=== PATIENT | female | born 1960 | race Caucasian/White ===

== ENCOUNTER 2017-05-29 13:08 | Outpatient (CLI) | payer OTHER | END 2017-05-29 13:09 | disposition home or self-care (01) | DX: R07.89 Other chest pain (principal) | CPT/HCPCS: 93017 ==

== ENCOUNTER 2017-08-18 14:26 | Outpatient (CLI) | payer OTHER | END 2017-08-18 14:27 | disposition home or self-care (01) | LOC: BICULT 14:26 | PROVIDERS: ATTEND Family Medicine | DX: M79.89 Other specified soft tissue disorders (principal) ==

== ENCOUNTER 2017-09-03 09:55 | Outpatient (CLI) | payer OTHER ==
--- NOTE | 2017-09-03 12:07 | ULT ---
SOFT TISSUE ULTRASOUND OF THE NECK SUPRACLAVICULAR REGION LEFT SIDE WITH DOPPLER AND COLOR FLOW IMAGI NG: Date: 09/03/17 CLINICAL HISTORY: Neck swelling, palpable left supraclavicular mass. FINDINGS: At the site of palpable concern, sonographic imaging reveals reniform shaped soft tissue masses with associated flow by Doppler assessment indicating lymph nodes. These are of indeterminate etiology on the basis of this exam. Lymph nodes measure slightly greater than 1.0 cm in length and up to approxim ately 5.0 mm in short axis dimension. IMPRESSION: Scattered nonspecific lymph nodes of the area of clinical concern. As necessary, contrast enhanced CT neck soft tissue scan may be performed for further anatomic evaluation. POS: HAJA
== END 2017-09-03 09:56 | disposition home or self-care (01) ==
LOC: SCSULT 09:55
PROVIDERS: ATTEND Family Medicine
DX: R22.1 Localized swelling, mass and lump, neck (principal)
CPT/HCPCS: 76536

== ENCOUNTER 2017-09-10 09:56 | Outpatient (CLI) | payer OTHER ==
--- NOTE | 2017-09-10 11:26 | MRI ---
MRI RIGHT SHOULDER WITHOUT CONTRAST: HISTORY: M25.51. Chronic shoulder pain. COMPARISON: MRI right shoulder 03/08/11. FINDINGS: BICEPS TENDON: There is interstitial tear of the extraarticular biceps tendon with very atretic fibers. No normal i ntraarticular fibers are appreciated. LABRUM: There is tearing throughout the superior labrum and posterior superior labrum. ROTATOR CUFF: Severe tendinosis and scar replacement of the anterior fibers anterior of the supraspinatus tendo n. There are interstitial tears throughout the supraspinatus and infraspinatus tendons. Extensive u ndersurface fraying of the infraspinatus and supraspinatus tendons. No full-thickness perforation is appreciated. There is 30-40% undersurface tear of the mid supraspinatus tendon near the footplate w ith a 6 mm gap measuring 5 mm in AP dimension. BONES: There is a large subacromial keel osteophyte narrowing the subacromial space and causing a lot of fra roberto in the supraspinatus tendon. Advanced degenerative disease of the acromioclavicular joint. SOFT TISSUES: Moderate subacromial-subdeltoid bursa effusion. Mild loss of normal subcoracoid fat. There is some fibrosis in the rotator interval. MUSCLES: The muscle signal and bulk is normal. IMPRESSION: 1. Chronic rupture of the biceps tendon for which the extraarticular tendon is severe atretic with n o normal intraarticular fibers remaining. 2. Severe tearing throughout the superior and posterior superior labrum with muscle volume and blunt ing. 3. Undersurface 40-50% undersurface tearing of the mid fibers supraspinatus tendon 6 mm from the fabio tplate measuring 5 mm in transverse dimension. 4. Extensive interstitial tearing throughout the supraspinatus and infraspinatus tendon with large v olume scar formation. 5. Type III acromion with a large undersurface keel osteophyte narrowing the subacromial space and i mpinging upon the supraspinatus myotendinous junction. 6. Mild scar with synovitis at the rotator interval. 7. No significant muscle atrophy. POS: TPC
== END 2017-09-10 09:57 | disposition home or self-care (01) ==
LOC: SCSMRI 09:56
PROVIDERS: ATTEND Orthopaedic Surgery
DX: M25.511 Pain in right shoulder (principal); S46.011A Strain of muscle(s) and tendon(s) of the rotator cuff of right shoulder, initial encounter; S43.491A Other sprain of right shoulder joint, initial encounter; M25.711 Osteophyte, right shoulder; M65.811 Other synovitis and tenosynovitis, right shoulder

== ENCOUNTER 2017-10-06 09:16 | Outpatient (CLI) | payer OTHER ==
[2017-10-06 10:35] LABS: #Eosinphils 0.1 thou/uL (0.0-0.7); #Lymphocytes 2.5 thou/uL (1.20-3.40); #Monocytes 0.4 thou/uL (0.11-0.59); #Neutrophils 4.5 thou/uL (1.40-6.50); %Basophils 0.6 % (0.0-1.0); %Eosinophils 1.8 % (0.0-10.0); %Lymphocytes 33.1 % (21.0-51.0); %Monocytes 5.6 % (0.0-10.0); %Neutrophils 58.8 % (42.0-75.0); Hemoglobin 14.1 g/dL (12.0-16.0); Mean Corpuscular HGB CONC 33.5 g/dL (32.0-36.0); Mean Corpuscular Hemoglobin 30.4 pg (27.0-31.0); Mean Corpuscular Volume 90.8 fL (78.0-98.0); Mean Platelet Volume 5.8 fL (7.4-10.4); Platelet Count 316 thou/uL (130-400); RBC Distribution Width 11.9 % (11.5-14.5); Red Blood Cell (RBC) Count 4.64 mill/uL (4.20-5.40); White Blood Cell (WBC) Count 7.6 thou/uL (4.8-10.8)
[2017-10-06 11:00] LABS: Anion Gap 11 mmol/L (10-20); BUN (Urea Nitrogen) 18 mg/dL (9.8-20.1); Calc. Creatinine Clearance 0 mL/min (70-130); Calcium 10.1 mg/dL (7.8-10.44); Carbon Dioxide 30 mmol/L (22-29); Chloride 102 mmol/L (98-107); Estimated GFR-MDRD 58; Glucose 86 mg/dL (70-105); Potassium 4.6 mmol/L (3.5-5.1); Sodium 138 mmol/L (136-145)
--- NOTE | 2017-10-07 12:35 | EKG ---
Test Reason : Blood Pressure : / mmHG Vent. Rate : 065 BPM Atrial Rate : 065 BPM P-R Int : 136 ms QRS Dur : 084 ms QT Int : 418 ms P-R-T Axes : 057 072 049 degrees QTc Int : 434 ms Normal sinus rhythm Normal ECG Confirmed by MICHAELA ARREGUIN ([id number]) on 10/07/2017 12:34:52 PM Referred By: IERO Confirmed By:MICHAELA ARREGUIN
== END 2017-10-06 09:17 | disposition home or self-care (01) ==
LOC: LABBT 09:16
PROVIDERS: ATTEND Orthopaedic Surgery
DX: Z01.818 Encounter for other preprocedural examination (principal); M75.101 Unspecified rotator cuff tear or rupture of right shoulder, not specified as traumatic
CPT/HCPCS: 80048; 85025; 93005; 93010

== ENCOUNTER 2017-10-08 08:20 | Day surgery (SDC) | payer OTHER ==
[2017-10-06 09:36] VITALS: BMI 288.9
[2017-10-08] MEDS ORDERED: CEFAZOLIN/Water 2 GM/20 ML SYRINGE ONE (10:31)
[2017-10-08] MEDS ORDERED: Lidocaine 2% Jelly 5 ML TUBE ONE (11:04)
[2017-10-08] MEDS ORDERED: Midazolam HCl 2 mg/2 ml Vial ONE (11:04)
[2017-10-08] MEDS ORDERED: Fentanyl 250 MCG/5 ML VIAL ONE (11:04)
[2017-10-08] MEDS ORDERED: Bupivacaine HCl 0.5%/Epinephrine 1:200,000/PF 30 ml Vial ONE (11:12)
[2017-10-08] MEDS ORDERED: Bupivacaine HCl 0.25%/Epi 0.0005/PF 10 ML VIAL FS ONE ×2 (11:37)
[2017-10-08] MEDS ORDERED: Fentanyl 100 MCG/2 ML VIAL ONE (13:08)
[2017-10-08] MEDS ORDERED: Ropivacaine 0.5% HCl/PF (150 MG/30 ML VIAL) ONE (13:25)
[2017-10-08] MEDS ORDERED: Ropivacaine 0.2% HCl/PF (40 MG/20 ML VIAL) ONE (13:25)
[2017-10-08] MEDS ORDERED: Zolpidem Tartrate 5 MG TAB PO PRN (13:36)
[2017-10-08] MEDS ORDERED: traMADol HCl 50 MG TAB PO PRN ×2 (13:36)
[2017-10-08] MEDS ORDERED: Ondansetron HCl/PF 4 MG/2 ML Vial IVP PRN (13:36)
[2017-10-08] MEDS ORDERED: Ropivacaine HCl/PF 1,100 MG in Sodium Chloride 0.9% 440 ML NERVE BLCK SCH (13:36)
[2017-10-08] MEDS ORDERED: HYDROcodone/Acetaminophen 5/325 mg Tablet PO PRN ×2 (13:36)
[2017-10-08] MEDS ORDERED: Promethazine HCl 25 MG/ML VIAL IM PRN (13:36)
--- NOTE | 2017-10-08 13:55 | OP ---
DATE OF PROCEDURE: 10/08/2017 PREOPERATIVE DIAGNOSES: Right shoulder impingement with small rotator cuff tear and previously torn biceps tendon with small stump of the biceps looked into the joint. POSTOPERATIVE DIAGNOSES: Right shoulder impingement with small rotator cuff tear and previously torn biceps tendon with small stump of the biceps looked into the joint. PROCEDURE PERFORMED: 1. Right shoulder arthroscopy with subacromial decompression. 2. Arthroscopic rotator cuff repair. SURGEON: Ayaan Herrera M.D. SKIDDER OPERATOR: None. BLOOD LOSS: Minimal. COMPLICATIONS: None. ANESTHESIA: She did have a general anesthetic. DISPOSITION: She went to recovery in stable condition. IMPLANTS: We used one 4.75 Swivel Lock as an implant. INDICATIONS: A 57-year-old female who, has had problems with the right shoulder for quite some time. At this time, she is presenting for surgery. DESCRIPTION OF PROCEDURE: After all appropriate consent forms were explained and signed, she was moo en to the operating room and at this time was given general anesthetic. Once the level of anesthesia was appropriate, she was rolled into the left lateral decubitus position with all bony prominences w ell-padded. An axillary roll was placed beneath the left axilla and the gonzales bag was inflated to hol d her in this position. The arm was then suspended with 10 pounds in standard arthroscopic fashion. The right shoulder and upper extremity are prepped and draped in the standard surgical fashion. Bon y anatomic landmarks were drawn out and at this time, we injected some 0.25% Marcaine with epinephrin e to the posterior portal, lateral portal site, and the subacromial space. Posterior portal was then established and the scope was placed into the shoulder joint. Anterior working portal was then made using a needle localization technique and diagnostic arthroscopy commenced in the glenohumeral joint . There was a stump of the previously torn biceps tendon sitting on the superior labrum, superior as pect tear of the subscapularis tendon, remaining subscap was found to be nice and taut upon testing i t with internal and external rotation. There were no loose bodies noted in the axillary pouch to the posterior and inferior and anterior labrum were in excellent condition. Again, the superior labrum was torn and frayed. There was also a tear of the undersurface of the rotator cuff. All these fraye d areas were then debrided with the shaver and the rotator cuff was felt to have just a couple fibers left on the superior portion, but for all intents and purposes of full thickness tear. At this time , the scope was removed and replaced into the subacromial space. A lateral working portal was made. Bursa was removed. A small bony decompression was performed using a surface energy and the shaver a nd once this was performed, we were able to find the bump in the tendon and upon probing this, the pr obe just went right through the tendon like it was a butter. At this time, the shaver was used to fr eshen up the edges of the tendon and remove all soft tissue from this small area on the bony insertio n site and it was felt that this was small enough that we would just perform a SpeedFix type of repai r. We then took a 4.75 BioComposite Swivel Lock anchor, removed the FiberTape from this, passed a Fi berTape in inverted mattress fashion using the scorpion device into the tendon and then went down the lateral arm in a lateral row fixation technique. Once this was tightened and the anchor was placed. This gave us an excellent fixation. There were no dog ears that needed to be augmented and at this time, the sutures were cut. The excess sutures were removed from the ala. This was end of our proc edure. Scope was removed, shoulder was drained, and each portal site was closed with simple nylon st itch. Bulky sterile dressing was applied. The patient was awakened and taken to the recovery room i n stable condition. All counts were correct at the end of the case and she received preoperative IV antibiotics.
[2017-10-08] MEDS ORDERED: Ondansetron HCl/PF 4 MG/2 ML Vial ONE (14:29)
[2017-10-08] MEDS ORDERED: Glycopyrrolate 0.2 MG/ML 5 ML SYRINGE ONE (14:29)
[2017-10-08] MEDS ORDERED: Lidocaine 1% PF 5 ML VIAL ONE (14:29)
[2017-10-08] MEDS ORDERED: ePHEDrine/0.9% NaCl/PF SYRINGE 50 mg/10 ml ONE (14:29)
[2017-10-08] MEDS ORDERED: PROPOFOL 200 MG/20 ML VIAL ONE (14:29)
[2017-10-08] MEDS ORDERED: Naloxone HCl 0.4 mg/ml Vial ONE (14:29)
== END 2017-10-08 15:52 | disposition home or self-care (01) ==
LOC: SDC 08:20
PROVIDERS: ATTEND Orthopaedic Surgery
PROC: 0LQ14ZZ Repair Right Shoulder Tendon, Percutaneous Endoscopic Approach (ICD-10-PCS; principal; 2017-10-08)
PROC: 0RNJ4ZZ Release Right Shoulder Joint, Percutaneous Endoscopic Approach (ICD-10-PCS; principal; 2017-10-08)
DX: M75.121 Complete rotator cuff tear or rupture of right shoulder, not specified as traumatic (principal); M25.811 Other specified joint disorders, right shoulder; E03.9 Hypothyroidism, unspecified; F41.9 Anxiety disorder, unspecified; L40.50 Arthropathic psoriasis, unspecified; Z87.891 Personal history of nicotine dependence; Z88.8 Allergy status to other drugs, medicaments and biological substances; Z79.899 Other long term (current) drug therapy
CPT/HCPCS: 96374; C1713; J0670; J2001; J2250; J2310; J2405; J2704; J2795; J3010; J7050

== ENCOUNTER 2019-07-30 08:46 | Outpatient (CLI) | payer OTHER ==
[2019-07-30] MEDS ORDERED: Iopamidol-370 76% 500 ML 1 ML ONE (09:59)
--- NOTE | 2019-07-30 12:57 | CT ---
CT ABDOMEN AND PELVIS PERFORMED WITH AND WITHOUT CONTRAST ENHANCEMENT: HISTORY: Right lower quadrant pain radiating to back. FINDINGS: The lung bases are clear of infiltrative process. The liver, spleen, pancreas, and gallbladder regions all appear unremarkable. Right and left adrenal glands and right and left kidneys are normal in size. There are no renal or u reteral calculi. No obstruction. There is no significant periaortic or mesenteric lymphadenopathy. No bowel wall findings. CT OF PELVIS PERFORMED WITH AND WITHOUT CONTRAST: The appendix is normal. There is no evidence of adenopathy, mass, or free fluid. Review of osseous structures shows some arthritic changes in the spine. IMPRESSION: No acute findings of the abdomen or pelvis. POS: GLENROY
== END 2019-07-30 08:47 | disposition home or self-care (01) ==
LOC: BICCT 08:46
PROVIDERS: ATTEND Family Medicine
DX: R10.2 Pelvic and perineal pain (principal); R10.30 Lower abdominal pain, unspecified
CPT/HCPCS: 74178; Q9967

== ENCOUNTER 2019-11-19 12:13 | Outpatient (CLI) | payer OTHER ==
--- NOTE | 2019-11-22 13:27 | MMO ---
Bilateral MAMMO Bilat Screen [facility]. CLINICAL HISTORY: Patient is 59 years old and is seen for screening. The patient has no family history of breast cancer. The patient has no personal history of cancer. VIEWS: The views performed were: bilateral craniocaudal with tomosynthesis and bilateral mediolateral oblique with tomosynthesis. FILMS COMPARED: The present examination has been compared to prior imaging studies performed at [facility] on 04/20/2010, 07/05/2011 and 01/26/2015. This study has been interpreted with the assistance of computer-aided detection. MAMMOGRAM FINDINGS: There are scattered fibroglandular densities. There are no suspicious masses, suspicious calcifications, or new areas of architectural distortion. IMPRESSION: THERE IS NO MAMMOGRAPHIC EVIDENCE OF MALIGNANCY. A ROUTINE FOLLOW-UP MAMMOGRAM IN 1 YEAR IS RECOMMENDED. THE RESULTS OF THIS EXAM WERE SENT TO THE PATIENT. ACR BI-RADS Category 1 - Negative MAMMOGRAPHY NOTE: 1. A negative mammogram report should not delay a biopsy if a dominant of clinically suspicious mass is present. 2. Approximately 10% to 15% of breast cancers are not detected by mammography. 3. Adenosis and dense breasts may obscure an underlying neoplasm. Reported by: JOSIAH MARQUES MD Electonically Signed: [id number]
== END 2019-11-19 12:14 | disposition home or self-care (01) ==
LOC: BICMAMMO 12:13
PROVIDERS: ATTEND Family Medicine
DX: Z12.31 Encounter for screening mammogram for malignant neoplasm of breast (principal)
CPT/HCPCS: 77063; 77067